=== PATIENT | female | born 1945 | race Caucasian/White ===

== ENCOUNTER 2017-01-26 12:21 | Emergency (ER) | payer MEDICARE, BC ==
--- NOTE | 2017-01-26 12:41 | Emergency Department Record ---
History of Present Illness - General Chief complaint: Pain Stated complaint: R SIDE RIB PAIN/FALL Time Seen by Provider: 01/26/17 12:38 Source: Patient Mode of Arrival: Ambulatory Limitations: No limitations - History of Present Illness Initial comments: The patient is here due to R rib pain for 2 days. She was on a step stool 2 days ago and lost her balance and fell onto a laundry basket injuring her R ribs. She denies any head injury, head or neck trauma, AP, anterior chest pain or SOB. She is on Eliquis for cardiac issues. MD Complaint: Other Onset/Timin -: Days(s) Location: Right, Other History of Same: No Quality: Aching Consistency: Constant Improves with: Nothing Worsens with: Nothing Associated Symptoms: Denies other symptoms - Related Data Home Medications Medication Instructions Recorded Confirmed Last Taken Apixaban [Eliquis] 5 mg PO DAILY 01/26/17 01/26/17 Unknown Aspirin [Ecotrin] 81 mg PO DAILY 01/26/17 01/26/17 Unknown Atorvastatin Calcium [Atorvastatin 40 mg PO DAILY 01/26/17 01/26/17 Unknown Calcium] Diclofenac Sodium [Diclofenac 1 gm TOP ASDIR 01/26/17 01/26/17 Unknown Sodium] Furosemide [Lasix] 20 mg PO ASDIR 01/26/17 01/26/17 Unknown Hyoscyamine Sulfate [Levsin-Sl] 0.125 mg SL Q6H PRN 01/26/17 01/26/17 Unknown Metoprolol Succinate [Toprol Xl] 25 mg PO DAILY 01/26/17 01/26/17 Unknown Omeprazole 20 mg PO BID 01/26/17 01/26/17 Unknown Sertraline HCl [Zoloft] 50 mg PO DAILY 01/26/17 01/26/17 Unknown Sotalol HCl [Betapace] 80 mg PO DAILY 01/26/17 01/26/17 Unknown Previous Rx's Medication Instructions Recorded Tramadol HCl 50 mg PO Q8H #20 tab 01/26/17 Allergies Allergy/AdvReac Type Severity Reaction Status Date / Time acetaminophen [From [place]] Allergy NAUSEA AND Verified 01/26/17 12:33 VOMITING azithromycin Allergy DIARRHEA Verified 01/26/17 12:33 hydrocodone [From [place]] Allergy NAUSEA AND Verified 01/26/17 12:33 VOMITING sulfamethoxazole Allergy HIVES Verified 01/26/17 12:33 [From Bactrim] trimethoprim [From Bactrim] Allergy HIVES Verified 01/26/17 12:33 Travel Screening - Travel/Exposure Within Last 30 Days Have you traveled within the last 30 days?: No Review of Systems Constitutional: Denies: Chills, Fever Eyes: Denies: Eye discharge ENT: Denies: Congestion Respiratory: Denies: Cough, Dyspnea Past Medical History - SOCIAL HISTORY Smoking Status: Never smoker Alcohol Use: None Drug Use: None - RESPIRATORY Hx Respiratory Disorders: No - CARDIOVASCULAR Hx Cardio Disorders: Yes Hx Abnormal EKG: Yes Hx Cardiac Cath: Yes Hx Irregular Heartbeat: Yes (afib) - NEURO Hx Neuro Disorders: No - GI Hx GI Disorders: Yes Hx Irritable Bowel: Yes - Hx Genitourinary Disorders: No - ENDOCRINE Hx Endocrine Disorders: No - MUSCULOSKELETAL Hx Musculoskeletal Disorders: Yes Hx Arthritis: Yes - PSYCH Hx Psych Problems: No - HEMATOLOGY/ONCOLOGY Hx Hematology/Oncology Disorders: Yes Hx Anemia: Yes Family Medical History Any Significant Family History?: No Physical Exam - General General Appearance: Alert, Oriented x3, Cooperative, No acute distress - Head Head exam: Atraumatic, Normocephalic, Normal inspection - Eye Eye exam: Normal appearance, PERRL - Neck Neck exam: Normal inspection, Full ROM. negative: Tenderness - Respiratory Respiratory exam: Normal lung sounds bilaterally, Chest wall tenderness (The pain is very reproducible to palpation over the R lateral medial rib area.). negative: Respiratory distress - Cardiovascular Cardiovascular Exam: Regular rate, Normal rhythm, Normal heart sounds - GI/Abdominal GI/Abdominal exam: Soft, Normal bowel sounds. negative: Tenderness - Extremities Extremities exam: Normal inspection, Full ROM, Normal capillary refill. negative: Tenderness - Neurological Neurological exam: Alert, Normal gait. negative: Abnormal gait, Motor sensory deficit Course Vital Signs 01/26/17 12:40 Temperature 97.7 F Pulse Rate [ 66 Pulse Ox Probe] Respiratory 16 Rate Blood Pressure 129/70 [Left Arm] Pulse Ox 98 - Reevaluation(s) Reevaluation #1: The patient is doing well at this time and denies any need for pain medicines. I did explain to her that the xrays do demonstrate 4 broken ribs on the R. Since the injury was 2 days ago and she has no respiratory issues I do feel she is stable for discharge. 01/26/17 13:42 Medical Decision Making - Data Complexity MDM Data: X-Ray Ordered and/or Reviewed - Radiology Data Radiology results: Report reviewed (R Ribs: 4 minimally displaced broken ribs on the R. T4-7. Neg PTX and lungs clear.) Disposition Disposition: Discharge Clinical Impression: Ribs, multiple fractures Qualifiers: Encounter type: initial encounter Fracture type: closed Laterality: right Qualified Code(s): S22.41XA - Multiple fractures of ribs, right side, initial encounter for closed fracture Disposition: Home, Self-Care Condition: (2) Stable Instructions: Rib Fracture (ED) Additional Instructions: Please use the incentive spirometer as directed and use the Tramadol as directed. Please rest with no lifting for a week. Please see your PCP next week for recheck and return to the ER for any increased pain, trouble breathing, fever or cough. Prescriptions: Tramadol HCl 50 mg PO Q8H #20 tab Forms: Patient Portal Access Time of Disposition: 13:47 Quality - Quality Measures Quality Measures: N/A - Blood Pressure Screening View Details: Yes Does Patient Have Any of the Following: No Blood Pressure Classification: Pre-Hypertensive BP Reading Systolic Measurement: 134 Diastolic Measurement: 69 Screening for High Blood Pressure: < Pre-Hypertensive BP, F/U Documented > [ [id number]] Pre-Hypertensive Follow-up Interventions: Referral to alternative/primary care provider.
--- NOTE | 2017-01-26 21:25 | RADIOLOGY REPORT ---
EXAM: RIBS, RIGHT W/PA CHEST HISTORY: LIFTING INJURY, RIGHT RIB PAIN. COMPARISON: None. ENCOUNTER: Initial. TECHNIQUE: PA view of the chest and two oblique views of the right ribs. FINDINGS: Right-sided pacemaker is present. Lungs are clear. Cardiac silhouette and diaphragm are unremarkable. Osteopenia with compromised rib detail. Acute mildly displaced fractures of the fourth, fifth, sixth, and seventh ribs. IMPRESSION: 1. ACUTE MILDLY DISPLACED FRACTURES OF THE ANTERIOR RIGHT FOURTH, FIFTH, AND SIXTH, AND SEVENTH RIBS. 2. THE LUNGS ARE CLEAR. JOB NUMBER: [id number] MTDD
== END 2017-01-26 14:10 | disposition home or self-care (01) ==
LOC: ER 12:21
DX: S22.41XA Multiple fractures of ribs, right side, initial encounter for closed fracture (principal); W07.XXXA Fall from chair, initial encounter; Z79.01 Long term (current) use of anticoagulants; I48.91 Unspecified atrial fibrillation
CPT/HCPCS: 94010; 99283; 99284